=== PATIENT | female | born 1990 | race Caucasian/White ===

== ENCOUNTER → 2024-12-09 | Outpatient (CLI) | payer SELFPAY ==
--- NOTE | 2024-12-09 13:08 | RAD_ITS ---
PROCEDURE: CERV SPINE 4 OR 5 VIEWS 12/09/2024 REASON FOR EXAM: CERVICALGIA TECHNIQUE: Procedure Code: RADSPC Modality: DX Procedure: Five view cervical spine series including bilateral oblique views COMPARISON: None. RAD/Cerv Spine 4 or 5 Views IMPRESSION: Mild degenerative changes are seen throughout the mid and lower cervical spine, with probable mild disc narrowing at C4-C5. Mild uncovertebral joint hypertrophy from C4 through C7 is seen bilaterally, with pr obable mild left C4-C5 osseous neural foraminal narrowing present, as well. No fracture, subluxation, or prevertebral soft tissue swelling is noted. Reading Location: [place] [id number]
--- NOTE | 2024-12-09 13:08 | RAD_ITS ---
PROCEDURE: CERV SPINE 4 OR 5 VIEWS 12/09/2024 REASON FOR EXAM: CERVICALGIA TECHNIQUE: Procedure Code: RADSPC Modality: DX Procedure: Five view cervical spine series including bilateral oblique views COMPARISON: None. RAD/Cerv Spine 4 or 5 Views IMPRESSION: Mild degenerative changes are seen throughout the mid and lower cervical spine, with probable mild disc narrowing at C4-C5. Mild uncovertebral joint hypertrophy from C4 through C7 is seen bilaterally, with pr obable mild left C4-C5 osseous neural foraminal narrowing present, as well. No fracture, subluxation, or prevertebral soft tissue swelling is noted. Reading Location: [place] [id number]
[2024-12-09 13:52] LABS: Hematocrit 40.6 % (37-47); Hemoglobin 13.2 g/dL (12.0-15.0); Immature Granulocytes Count 0.010 X10^3/uL (0.0-0.0); Mean Corp Hgb Conc 32.5 g/dL (32-36); Mean Corpuscular Volume 88.5 fL (81-99); Mean Platelet Vol. 9.0 fl (6.2-12.0); NRBC Flagged by Analyzer 0 % (0-5); Platelet Count 429 K/mm3 (150-450); RBC Distribution Width CV 12.7 % (11.6-14.6); RBC Distribution Width SD 41.1 fl (35.1-43.9); Red Blood Count 4.59 M/mm3 (4.2-5.4); White Blood Count 6.3 K/mm3 (4.4-11.0)
[2024-12-09 14:23] LABS: AST(SGOT) 17 U/L (<=31); Alanine Aminotransfer ALT/SGPT 7 U/L (<=34); Albumin, Serum 4.6 g/dL (3.5-5.0); Alkaline Phosphatase 78 U/L (35-104); Anion Gap 10 (5-15); BUN 6 mg/dL (4-19); BUN/Creat Ratio 9.0 RATIO (10-20); Calcium,Total 9.3 mg/dL (7.6-11.0); Carbon Dioxide 26.1 mmol/L (21.0-32.0); Chloride 105 mmol/L (98-108); Globulin 3.0 g/dL (2.2-4.2); Glucose 95 mg/dL (70-99); Potassium 3.8 mmol/L (3.3-5.1)
== END | disposition home or self-care (01) ==
LOC: LAB 12:54
PROVIDERS: Referring Provider Nurse Practitioner Family; Visit Provider Nurse Practitioner Family
DX: M54.2 Cervicalgia (principal); F32.A Depression, unspecified
CPT/HCPCS: 36415; 72050; 80053; 85025